=== PATIENT | female | born 1995 | race Caucasian/White ===

== ENCOUNTER 2020-05-10 16:10 | Emergency (ER) | payer OTHER, SELFPAY ==
[2020-05-10 19:10] VITALS: BP 116/78; PULSE 95; RESP 16; TEMP 37.1; O2SAT 99; BMI 20.3
--- NOTE | 2020-05-10 19:40 | ED_ITS ---
HPI - Abdominal Pain General Chief Complaint: Abdominal Pain <ANCELMO Johnson Last Filed: 05/10/20 22:45> Stated Complaint: ABD PAIN/NAUSEA/DIZZINESS/VOMITING <ANCELMO Johnson Last Filed: 05/10/20 22:45> Time Seen by Provider: 05/10/20 19:30 <ANCELMO Johnson Last Filed: 05/10/20 22:45> Source: patient <ANCELMO Johnson Last Filed: 05/10/20 22:45> Mode of arrival: ambulatory <ANCELMO Johnson Last Filed: 05/10/20 22:45> History of Present Illness HPI narrative: 24-year-old female with no significant past medical history presenting to ED complaining of lower abdominal cramping x1 week, and positive at home preg ankit test. Admits to associated nausea and vomiting. Denies fever, chills, vaginal bleeding, vaginal discharge, flank pain, concern for STI. Patient is sexually active with 1 partner <ANCELMO Johnson Last Filed: 05/10/20 22:45> MD elicited complaint: abdominal pain <ANCELMO Johnson Last Filed: 05/10/20 22:45> Related Data Home Medications: Home Medications Medication Instructions Recorded Confirmed No Known Home Meds 05/10/20 05/10/20 <ANCELMO Johnson Last Filed: 05/10/20 22:45> Allergies/Adverse Reactions: Allergies Allergy/AdvReac Type Severity Reaction Status Date / Time No Known Allergies Allergy Unverified 04/11/20 19:44 [No Known Allergies*] <ANCELMO Johnson Last Filed: 05/10/20 22:45> Review of Systems Review of Systems Constitutional: No Weight loss, No Fever, No Chills Cardiovascular: No Chest Pain, No SOB Gastrointestinal: + Nausea, + Vomiting, No Diarrhea, No Constipation, + abdominal pain Genitourinary: No irregular bleeding, No Dysuria, No Urinary Frequency, No Hematuria, No Urgency, No Flank Pain, No Urinary Flow Changes Skin: No Skin Lesions, No rash <ANCELMO Johnson Last Filed: 05/10/20 22:45> Yes all other systems are reviewed and are negative <ANCELMO Johnson Last Filed: 05/10/20 22:45> Physical Exam Vital Signs: Vital Signs: Vital Signs Temp Pulse Resp BP Pulse Ox 05/10/20 19:10 98.7 F 95 16 116/78 99 Body Mass Index 20.3 <Amy Wesley PA - Last Filed: 05/10/20 22:45> Vital Signs: Vital Signs Temp Pulse Resp BP Pulse Ox 05/10/20 19:10 98.7 F 95 16 116/78 99 Body Mass Index 20.3 <Jc Dubon MD - Last Filed: 05/14/20 14:59> Const: General: cooperative and healthy appearing <ANCELMO Johnson - Last Filed: 05/10/20 22:45> Orientation/consciousness: patient oriented x3 <ANCELMO Johnson - Last Filed: 05/10/20 22:45> Limitations: no limitations <ANCELMO Johnson - Last Filed: 05/10/20 22:45> HENMT: Head: Yes normal to inspection <Amy Wesley [place] - Last Filed: 05/10/20 22:45> Ears: hearing grossly normal bilaterally <Amy Wesley [place] - Last Filed: 05/10/20 22:45> General nose exam: Normal external nose present <ANCELMO Johnson - Last Filed: 05/10/20 22:45> Face and sinus: Yes normal facial exam <ANCELMO Johnson - Last Filed: 05/10/20 22:45> Eyes: General: appearance normal, both eyes and all related structures <ANCELMO Johnson - Last Filed: 05/10/20 22:45> EOM: EOMs intact bilaterally <Amy Wesley [place] - Last Filed: 05/10/20 22:45> Neck: Neck: Yes normal visual inspection <ANCELMO Johnson - Last Filed: 05/10/20 22:45> Chest: Chest palpation & inspection: normal inspection of the chest <ANCELMO Johnson - Last Filed: 05/10/20 22:45> GI: Inspection: Yes normal to inspection <ANCELMO Johnson - Last Filed: 05/10/20 22:45> Palpation (GI): Soft to palpation, nontender, no guarding and not rigid <Amy Wesley PA - Last Filed: 05/10/20 22:45> : General: Yes no CVA tenderness <Amy Wesley PA - Last Filed: 05/10/20 22:45> Back/Spine/Pelvis: Back: no CVA tenderness <Amy Wesley PA - Last Filed: 05/10/20 22:45> Skin: Rashes: no rashes <Amy Wesley PA - Last Filed: 05/10/20 22:45> Wounds: no wounds <Amy Wesley PA - Last Filed: 05/10/20 22:45> Neuro: General: patient oriented x3 <ANCELMO Johnson - Last Filed: 05/10/20 22:45> Gait exam (Neuro): Normal gait present <ANCELMO Johnson - Last Filed: 05/10/20 22:45> Extrem: General: Yes normal to inspection <ANCELMO Johnson - Last Filed: 05/10/20 22:45> Course Course Course Narrative: -4-- labs unremarkable, UA negative, urine positive >> Ob transvaginal ultrasound ordered <ANCELMO Johnson - Last Filed: 05/10/20 22:45> I have reviewed the chart <Jc Dubon MD - Last Filed: 05/14/20 14:59> MDM - Abdominal Pain MDM Narrative Medical decision making narrative: 24-year-old female with no significant past medical history presenting to ED complaining of lower abdominal cramping x1 week, and positive at home test. On exam VS as, NAD/ well-appearing, abdomen soft /nontender, no CVAT. concern for vs ectopic vs ovarian cyst/torsion. Low concern for appendicitis / diverticulitis or other infectious etiology Plan: Labs, UA, ultrasound, reassess <ANCELMO Johnson - Last Filed: 05/10/20 22:45> Lab Data Result diagrams: : 05/10/20 21:33 05/10/20 21:33 <ANCELMO Johnson - Last Filed: 05/10/20 22:45> Labs: Lab Results 05/10/20 05/10/20 05/10/20 Range/Units 21:32 21:33 21:33 WBC 6.1 (4.8-10.8) X10*3/uL RBC 4.27 (4.20-5.50) X10*6/uL Hgb 12.7 (12.0-16.0) g/dl Hct 36.9 L (37-47) % MCV 86.4 (80-98) fL MCH 29.7 (27.0-33.0) pg MCHC 34.4 (31.0-35.0) g/dl RDW 12.1 (11.0-16.0) % Plt Count 170 (160-400) X10*3/uL MPV 12.2 (9.4-12.3) fL Immature Gran % (Auto) 0.3 (0.0-0.4) % Neut % (Auto) 54.7 (45-73) % Lymph % (Auto) 31.8 (20-40) % [place] % (Auto) 11.2 H (2-11) % Eos % (Auto) 1.5 (0-4) % Baso % (Auto) 0.5 (0-2) % Lymph # (Auto) 2.0 (1.2-4.9) X10*3/uL [place] # (Auto) 0.7 (0.1-1.2) X10*3/uL Eos # (Auto) 0.1 (0.0-0.4) X10*3/uL Baso # (Auto) 0.0 (0.0-0.2) X10*3/uL Abs Immat Gran (auto) 0.02 (0.00-0.03) X10*3/uL Absolute Neuts (auto) 3.4 (2.0-8.3) X10*3/uL Absolute Nucleated RBC 0.000 (0.0-0.012) X10*3/uL Nucleated RBC % (auto) 0.0 (0.0-0.2) /100WBC Sodium (135-145) mmol/L Potassium (3.3-5.1) mmol/l Chloride (96-108) mmol/L Carbon Dioxide (22-29) mmol/L Anion Gap (12-20) BUN (9-16) mg/dL Creatinine (0.5-1.4) mg/dL Estim Creat Clear Calc Estimated GFR Random Glucose (60-115) mg/dL Calcium (8.4-10.2) mg/dL Magnesium (1.6-2.6) mg/dL Total Bilirubin (0.0-1.0) mg/dL Direct Bilirubin (0.0-0.5) mg/dL AST (5-31) U/L ALT (0-31) U/L Alkaline Phosphatase (39-117) U/L Total Protein (6.5-8.0) g/dL Albumin (3.5-5.0) g/dL Lipase (8-78) U/L Beta HCG, Quant 7194 mIU/mL Urine Color YELLOW Urine Appearance CLEAR Urine pH 7.0 (5.0-8.0) Ur Specific [place] 1.020 (1.005-1.025) Urine Protein NEG (NEG-TRACE) MG/DL Urine Glucose (UA) NEG (NEG) MG/DL Urine Ketones 15 (NEG) MG/DL Urine Blood NEG (NEG) Urine Nitrite NEG (NEG) Ur Leukocyte Esterase NEG (NEG) Urine Test POSITIVE H (NEGATIVE) 05/10/20 Range/Units 21:33 WBC (4.8-10.8) X10*3/uL RBC (4.20-5.50) X10*6/uL Hgb (12.0-16.0) g/dl Hct (37-47) % MCV (80-98) fL MCH (27.0-33.0) pg MCHC (31.0-35.0) g/dl RDW (11.0-16.0) % Plt Count (160-400) X10*3/uL MPV (9.4-12.3) fL Immature Gran % (Auto) (0.0-0.4) % Neut % (Auto) (45-73) % Lymph % (Auto) (20-40) % [place] % (Auto) (2-11) % Eos % (Auto) (0-4) % Baso % (Auto) (0-2) % Lymph # (Auto) (1.2-4.9) X10*3/uL [place] # (Auto) (0.1-1.2) X10*3/uL Eos # (Auto) (0.0-0.4) X10*3/uL Baso # (Auto) (0.0-0.2) X10*3/uL Abs Immat Gran (auto) (0.00-0.03) X10*3/uL Absolute Neuts (auto) (2.0-8.3) X10*3/uL Absolute Nucleated RBC (0.0-0.012) X10*3/uL Nucleated RBC % (auto) (0.0-0.2) /100WBC Sodium 134 L (135-145) mmol/L Potassium 3.7 (3.3-5.1) mmol/l Chloride 105 (96-108) mmol/L Carbon Dioxide 24 (22-29) mmol/L Anion Gap 9 L (12-20) BUN 9 (9-16) mg/dL Creatinine 0.63 (0.5-1.4) mg/dL Estim Creat Clear Calc 112.4 Estimated GFR > 60 Random Glucose 80 (60-115) mg/dL Calcium 9.0 (8.4-10.2) mg/dL Magnesium 2.0 (1.6-2.6) mg/dL Total Bilirubin 0.5 (0.0-1.0) mg/dL Direct Bilirubin 0.3 (0.0-0.5) mg/dL AST 16 (5-31) U/L ALT 13 (0-31) U/L Alkaline Phosphatase 34 L (39-117) U/L Total Protein 7.1 (6.5-8.0) g/dL Albumin 4.3 (3.5-5.0) g/dL Lipase 37 (8-78) U/L Beta HCG, Quant mIU/mL Urine Color Urine Appearance Urine pH (5.0-8.0) Ur Specific [place] (1.005-1.025) Urine Protein (NEG-TRACE) MG/DL Urine Glucose (UA) (NEG) MG/DL Urine Ketones (NEG) MG/DL Urine Blood (NEG) Urine Nitrite (NEG) Ur Leukocyte Esterase (NEG) Urine Test (NEGATIVE) <ANCELMO Johnson - Last Filed: 05/10/20 22:45> Lab Results 05/10/20 05/10/20 05/10/20 Range/Units 21:32 21:33 21:33 WBC 6.1 (4.8-10.8) X10*3/uL RBC 4.27 (4.20-5.50) X10*6/uL Hgb 12.7 (12.0-16.0) g/dl Hct 36.9 L (37-47) % MCV 86.4 (80-98) fL MCH 29.7 (27.0-33.0) pg MCHC 34.4 (31.0-35.0) g/dl RDW 12.1 (11.0-16.0) % Plt Count 170 (160-400) X10*3/uL MPV 12.2 (9.4-12.3) fL Immature Gran % (Auto) 0.3 (0.0-0.4) % Neut % (Auto) 54.7 (45-73) % Lymph % (Auto) 31.8 (20-40) % [place] % (Auto) 11.2 H (2-11) % Eos % (Auto) 1.5 (0-4) % Baso % (Auto) 0.5 (0-2) % Lymph # (Auto) 2.0 (1.2-4.9) X10*3/uL [place] # (Auto) 0.7 (0.1-1.2) X10*3/uL Eos # (Auto) 0.1 (0.0-0.4) X10*3/uL Baso # (Auto) 0.0 (0.0-0.2) X10*3/uL Abs Immat Gran (auto) 0.02 (0.00-0.03) X10*3/uL Absolute Neuts (auto) 3.4 (2.0-8.3) X10*3/uL Absolute Nucleated RBC 0.000 (0.0-0.012) X10*3/uL Nucleated RBC % (auto) 0.0 (0.0-0.2) /100WBC Sodium (135-145) mmol/L Potassium (3.3-5.1) mmol/l Chloride (96-108) mmol/L Carbon Dioxide (22-29) mmol/L Anion Gap (12-20) BUN (9-16) mg/dL Creatinine (0.5-1.4) mg/dL Estim Creat Clear Calc Estimated GFR Random Glucose (60-115) mg/dL Calcium (8.4-10.2) mg/dL Magnesium (1.6-2.6) mg/dL Total Bilirubin (0.0-1.0) mg/dL Direct Bilirubin (0.0-0.5) mg/dL AST (5-31) U/L ALT (0-31) U/L Alkaline Phosphatase (39-117) U/L Total Protein (6.5-8.0) g/dL Albumin (3.5-5.0) g/dL Lipase (8-78) U/L Beta HCG, Quant 7194 mIU/mL Urine Color YELLOW Urine Appearance CLEAR Urine pH 7.0 (5.0-8.0) Ur Specific [place] 1.020 (1.005-1.025) Urine Protein NEG (NEG-TRACE) MG/DL Urine Glucose (UA) NEG (NEG) MG/DL Urine Ketones 15 (NEG) MG/DL Urine Blood NEG (NEG) Urine Nitrite NEG (NEG) Ur Leukocyte Esterase NEG (NEG) Urine Test POSITIVE H (NEGATIVE) 05/10/20 Range/Units 21:33 WBC (4.8-10.8) X10*3/uL RBC (4.20-5.50) X10*6/uL Hgb (12.0-16.0) g/dl Hct (37-47) % MCV (80-98) fL MCH (27.0-33.0) pg MCHC (31.0-35.0) g/dl RDW (11.0-16.0) % Plt Count (160-400) X10*3/uL MPV (9.4-12.3) fL Immature Gran % (Auto) (0.0-0.4) % Neut % (Auto) (45-73) % Lymph % (Auto) (20-40) % [place] % (Auto) (2-11) % Eos % (Auto) (0-4) % Baso % (Auto) (0-2) % Lymph # (Auto) (1.2-4.9) X10*3/uL [place] # (Auto) (0.1-1.2) X10*3/uL Eos # (Auto) (0.0-0.4) X10*3/uL Baso # (Auto) (0.0-0.2) X10*3/uL Abs Immat Gran (auto) (0.00-0.03) X10*3/uL Absolute Neuts (auto) (2.0-8.3) X10*3/uL Absolute Nucleated RBC (0.0-0.012) X10*3/uL Nucleated RBC % (auto) (0.0-0.2) /100WBC Sodium 134 L (135-145) mmol/L Potassium 3.7 (3.3-5.1) mmol/l Chloride 105 (96-108) mmol/L Carbon Dioxide 24 (22-29) mmol/L Anion Gap 9 L (12-20) BUN 9 (9-16) mg/dL Creatinine 0.63 (0.5-1.4) mg/dL Estim Creat Clear Calc 112.4 Estimated GFR > 60 Random Glucose 80 (60-115) mg/dL Calcium 9.0 (8.4-10.2) mg/dL Magnesium 2.0 (1.6-2.6) mg/dL Total Bilirubin 0.5 (0.0-1.0) mg/dL Direct Bilirubin 0.3 (0.0-0.5) mg/dL AST 16 (5-31) U/L ALT 13 (0-31) U/L Alkaline Phosphatase 34 L (39-117) U/L Total Protein 7.1 (6.5-8.0) g/dL Albumin 4.3 (3.5-5.0) g/dL Lipase 37 (8-78) U/L Beta HCG, Quant mIU/mL Urine Color Urine Appearance Urine pH (5.0-8.0) Ur Specific [place] (1.005-1.025) Urine Protein (NEG-TRACE) MG/DL Urine Glucose (UA) (NEG) MG/DL Urine Ketones (NEG) MG/DL Urine Blood (NEG) Urine Nitrite (NEG) Ur Leukocyte Esterase (NEG) Urine Test (NEGATIVE) <Jc Dubon MD - Last Filed: 05/14/20 14:59> Discharge Plan Discharge Clinical Impression: , Abdominal pain in <ANCELMO Johnson - Last Filed: 05/10/20 22:45> Patient Disposition: Home, Self-Care <ANCELMO Johnson - Last Filed: 05/10/20 22:45> Instructions: Abdominal Pain in (ED), First Trimester (ED) <ANCELMO Johnson - Last Filed: 05/10/20 22:45> Additional Instructions: your blood work showed a beta quant of greater than 7194 your ultrasound showed a intrauterine gestational sac without a pole, which can be normal in early . Ultrasound also showed trace amount of fluid in your pelvis and endometrium, recommending a repeat ultrasound in 7-10 days You should have your blood work redrawn in 48 hours if your abdominal cramping persists or worsens, you develop vaginal bleeding or discharge, or pain becomes unbearable return to the ED immediately CALL YOUR OBGYN TOMORROW TO MAKE AN APPOINTMENT START TAKING VITAMINS MAKE SHE STAY HYDRATED AT HOME <ANCELMO Johnson - Last Filed: 05/10/20 22:45> Prescriptions: No Action No Known Home Meds RF: 0 <ANCELMO Johnson - Last Filed: 05/10/20 22:45> Referrals: Fady Delacruz MD [Physician] - 2 days <ANCELMO Johnson - Last Filed: 05/10/20 22:45> Interventions: ED Discharge Assessment Last Done: 05/11/20 02:08 <ANCELMO Johnson - Last Filed: 05/10/20 22:45> Discharge Date/Time: 05/11/20 02:10 <ANCELMO Johnson - Last Filed: 05/10/20 22:45> PMFSH Past Medical History Attestation statement: The following information was validated with the patient. <ANCELMO Johnson - Last Filed: 05/10/20 22:45> Surgical History: Surgical History (Updated 05/10/20 @ 19:23 by Amie Bhatia) History of adenoidectomy Hx of appendectomy <ANCELMO Johnson - Last Filed: 05/10/20 22:45> Social History Social History: Social History Alcohol intake: never Smoking Status: Never smoker Smoked in Last 30 Days: No Use of substances other than those prescribed or required for medical reasons: No Advance Directives: No Advance Directives Information Provided: Yes <ANCELMO Johnson - Last Filed: 05/10/20 22:45>
[2020-05-10] MEDS: 0.9 % Sodium Chloride 1,000 ML 999 ML IVCONT (21:37)
[2020-05-10 22:00] VITALS: BP 97/66; PULSE 83; RESP 16; TEMP 36.8; O2SAT 99
[2020-05-10 22:00] LABS: MANUAL DIFF FLAG NO
[2020-05-10 22:05] LABS: Basophils Percent Auto 0.5 % (0-2); Eosinophils Absolute Auto 0.1 X10*3/uL (0.0-0.4); Eosinophils Percent Auto 1.5 % (0-4); Hematocrit 36.9 % (37-47); Hemoglobin 12.7 g/dl (12.0-16.0); Imm Gran Abs Auto 0.02 X10*3/uL (0.00-0.03); Imm Gran Pct Auto 0.3 % (0.0-0.4); Lymphocytes Percent Auto 31.8 % (20-40); Mean Corpuscular HGB Conc 34.4 g/dl (31.0-35.0); Mean Corpuscular Hemoglobin 29.7 pg (27.0-33.0); Mean Corpuscular Volume 86.4 fL (80-98); Mean Platelet Volume 12.2 fL (9.4-12.3); Monocytes Absolute Auto 0.7 X10*3/uL (0.1-1.2); Monocytes Percent Auto 11.2 % (2-11); Neutrophils Absolute Auto 3.4 X10*3/uL (2.0-8.3); Neutrophils Percent Auto 54.7 % (45-73); Platelet Count 170 X10*3/uL (160-400); Red Blood Count 4.27 X10*6/uL (4.20-5.50); Red Cell Distribution Width 12.1 % (11.0-16.0); White Blood Count 6.1 X10*3/uL (4.8-10.8)
[2020-05-10 22:25] LABS: Glucose Urine UA NEG (NEG); Leukocyte Esterase Urine NEG (NEG); Nitrite Urine NEG (NEG); Urine Blood NEG (NEG); Urine Ketones 15 MG/DL (NEG); Urine Protein NEG (NEG-TRACE)
[2020-05-10 22:31] LABS: Appearance Urine CLEAR; Color Urine YELLOW
[2020-05-10 22:34] LABS: UPreg QC Valid YES; Urine Pregnancy POSITIVE (NEGATIVE)
[2020-05-10 22:40] LABS: Alanine Aminotransferase 13 U/L (0-31); Albumin Level 4.3 g/dL (3.5-5.0); Alkaline Phosphatase 34 U/L (39-117); Anion Gap 9 (12-20); Aspartate Amino Transferase 16 U/L (5-31); Bilirubin Direct 0.3 mg/dL (0.0-0.5); Bilirubin Total 0.5 mg/dL (0.0-1.0); Blood Urea Nitrogen 9 mg/dL (9-16); Carbon Dioxide 24 mmol/L (22-29); Chloride 105 mmol/L (96-108); Creatinine Clr Calc Pharmacy 112.4; Estimated Glomerular Filt Rate > 60; Glucose Random 80 mg/dL (60-115); Lipase 37 U/L (8-78); Potassium 3.7 mmol/l (3.3-5.1); Sodium 134 mmol/L (135-145); Total Protein 7.1 g/dL (6.5-8.0)
[2020-05-10 23:49] LABS: HCG Quantitative 7194 mIU/mL
--- NOTE | 2020-05-11 00:03 | US_ITS ---
EXAMINATION: ULTRASOUND OB TRANSVAGINAL CLINICAL INFORMATION: Lower abdominal cramping, COMPARISON: None TECHNIQUE: Sonographic evaluation of the pelvis was performed transabdominally and transvaginally. FINDINGS: The uterus measures 7.7 x 4.0 x 6.0 cm. Within the uterus there is a gestational sac measuring 1.0 x 0.6 x 0.9 cm; this corresponds to a mean sac diameter of 0.8 cm and a gestational age of 5 weeks 3 days. Yolk sac is visible. No pole is seen at this time. Trace fluid is noted within the endometrial canal. The right ovary measures 3.6 x 3.0 x 2.3 cm. There is a complex right ovarian cyst measuring 2.3 x 2.1 x 1.9 cm, likely a corpus luteal cyst. The left ovary measures 2.5 x 1.2 x 1.4 cm and appears unremarkable. Small amount of free fluid is noted in the cul-de-sac. IMPRESSION: 1. Intrauterine gestational sac, with mean sac diameter corresponding to a gestational age of 5 weeks 3 days. No pole is visible at this time, which could be due to the early stage of . Sonographic follow-up in 7-10 days is recommended to assess for development of a pole. 2. Trace fluid in the endometrium, which could reflect a small amount of blood products. 3. Small amount of pelvic free fluid.
== END 2020-05-11 02:10 | disposition home or self-care (01) ==
PROVIDERS: Physician Assistant; Emergency Provider Emergency Medicine
DX: O26.91 Pregnancy related conditions, unspecified, first trimester (principal); R10.9 Unspecified abdominal pain
CPT/HCPCS: 36415; 76801; 76817; 80048; 80076; 81003; 81025; 83690; 83735; 84702; 85025; 96360; 99284

== ENCOUNTER 2025-07-16 13:38 | Emergency (ER) | payer MEDICAID, SELFPAY ==
--- NOTE | ~2025-07-16 | XR_ITS ---
EXAMINATION: XR CHEST 2 VIEWS HISTORY: coughing COMPARISON: There are no prior studies available for comparison. FINDINGS: PA and lateral views of the chest are submitted. The lungs are expanded and clear. There is no pleural effusion, pneumothorax, or pulmonary vascular congestion. The heart is normal in size. The bones are intact. XR/XR chest 2V IMPRESSION: Normal examination of the chest. Electronically signed by: Barrett Uribe MD 07/16/2025 01:59 PM [facility]
[2025-07-16 13:44] VITALS: BP 123/63; PULSE 110; RESP 18; TEMP 37.2; O2SAT 99; BMI 21.4
--- NOTE | 2025-07-16 13:48 | ED.GENADULT ---
HPI - General Adult General Chief complaint: Upper Respiratory Symptoms Stated complaint: Congested, Chills, Headaches, Body Aches Time Seen by Provider: 07/16/25 14:27 Source: patient and old records reviewed Mode of arrival: ambulatory Limitations: no limitations History of Present Illness ED Provider: GRAHAM DREW narrative: Healthy 30-year-old female who was exposed to her who tested positive for flu a. She notes she started with headaches, body aches, chills, nasal congestion for 1 day. She has no chest pain or trouble breathing. She has not been taking any [id number] medications for it. She is able to eat and drink. She thinks she also has the flu. MD complaint: Flu exposure with symptoms Onset (ago): day(s) (1) Location: head and face Radiation: non-radiation Severity: moderate Quality: aching Pain Consistency: constant Relieving factors: none Exacerbating factors: none Associated symptoms: cough, fever/chills, headaches, loss of appetite, malaise and other Treatments prior to arrival: none Related Data Previous Rx's ?Medication ?Instructions ?Recorded ibuprofen 600 mg tablet 600 mg PO Q6H PRN pain #30 tabs 07/16/25 ondansetron 4 mg disintegrating 4 mg PO Q8H PRN nausea and 07/16/25 tablet vomiting #20 tabs Allergies Allergy/AdvReac Type Severity Reaction Status Date / Time No Known Allergies Allergy Verified 07/16/25 13:46 Review of Systems Review of Systems: Yes all other systems are reviewed and are negative PMFSH Past Medical History Attestation statement: The following information was validated with the patient. Source: old records reviewed Medical History (Updated 07/16/25 @ 14:39 by Rody Aguirre DO) No pertinent past medical history Social History Social History (Updated 07/16/25 @ 14:31 by Rody Aguirre DO) Patient Tobacco Use Status: Never used Tobacco Advance Directives: No Advance Directives Information Provided: Yes Physical Exam ED Vital Signs: Vital Signs - 24 hr 07/16/25 13:44 07/16/25 14:58 Temperature 99 F 99 F Pulse Rate 110 H 110 H Respiratory Rate 18 18 Blood Pressure 123/63 123/63 Pulse Oximetry 99 99 BMI result Body Mass Index 21.4 Appearance: Alert. Oriented X3. No acute distress. Eyes: Pupils equal, round and reactive to light. ENT: Pharynx normal. Neck: Normal inspection. Neck supple. CVS: Normal heart rate and rhythm. Pulses normal. Respiratory: No respiratory distress. Breath sounds normal. Abdomen: Soft and nontender. Skin: Skin warm and dry. Normal skin color. Extremities: No lower extremity edema. Neuro: Oriented X 3. No motor deficit. No sensory deficit. Course Course Course Narrative: RmE: 30 yold female presents to the ED for URI symptoms. Patient states bodycahes, congestion, chills, and headaches, swabs and chest xray ordre.d Medical Decision Making Medical Decision Making MDM Narrative: 30-year-old female with no significant past medical history she denies any chance of she was exposed to her who has flu a. She comes in with URI symptoms she is not toxic appearing she has no chest pain or trouble breathing. She has stable vital signs she can be discharged home with supportive meds and return precautions Differential Diagnosis Differential Diagnoses: The differential diagnosis associated with the presentation includes viral syndrome, pneumonia Admission/Observation Consideration of admission/observation: Escalation of care including admission/observation considered Patient is nontoxic, well hydrated, tolerating p.o. she can be managed as an outpatient she has no significant risk factors I am holding Tamiflu at this time Lab Data [facility] Lab Attestation statement: I reviewed the patient's lab results. Labs: Lab Results 07/16/25 Range/Units 13:51 Influenza Type A (PCR) POSITIVE A (Negative) Influenza Type B (PCR) NEGATIVE (Negative) RSV RNA Qual (PCR) NEGATIVE (Negative) SARS-CoV-2 RNA (RT-PCR) NEGATIVE (Negative) S. pyogenes GrpA ARYAN Negative (Negative) Independent Interpretation I performed an independent interpretation of an: Plain X-Ray (normal ) Radiology Impression Discussion of test interpretation with radiology: I have reviewed the radiologist's reading. External Record Review External record reviewed: Outpatient record Prescription Management I considered prescription management with: Antiviral and Antibiotic Discharge Plan Discharge Clinical Impression: Influenza Patient Disposition: Home, Self-Care Instructions: Influenza (ED) Additional Instructions: your xray was normal your viral panel shows influenza A rest and stay hydrated alternate tylenol and motrin for fevers and pain return for worsening symptoms such as increased trouble breathing, chest pains, or any other concerns wear a mask you can infect others up to 7 days from the start of symptoms Prescriptions: New ibuprofen 600 mg tablet 600 mg PO Q6H PRN (Reason: pain) Qty: 30 0RF ondansetron 4 mg tablet,disintegrating 4 mg PO Q8H PRN (Reason: nausea and vomiting) Qty: 20 0RF Stand Alone Forms: Work/School Release Interventions: ED Discharge Assessment Last Done: 07/16/25 14:58 Discharge Date/Time: 07/16/25 15:01 Print Language: Argentine
[2025-07-16 14:06] LABS: IDNOW Serial# 58CA691E; Strep A Nucleic Acid Negative (Negative)
[2025-07-16 14:36] LABS: Resp Syncy Virus RNA Qual PCR NEGATIVE (Negative); SARS COV2 PCR INHOUSE NEGATIVE (Negative)
[2025-07-16 14:58] VITALS: BP 123/63; PULSE 110; RESP 18; TEMP 37.2; O2SAT 99
--- OUTSIDE RECORDS SUMMARY | 2025-07-16 17:59 | XMS_ITS | Clinical Summary ---
Author Organization [employer] Address [address] [place] [address] [address] [place] [address] Care Team Providers Care Educational Interpreter Name Role Phone Unavailable Primary Care Provider Unavailabl e Social History Tobacco Use Types Packs/Day Years Used Date Smoking Tobacco: Never Assessed Comments Unknown Sex and Gender Information Value Date Recorded Sex Assigned at Not on file Legal Sex Female 9:23 PM EDT Gender Identity Not on file Sexual Orientation Not on file Plan of Treatment Health Maintenance Due Date Last Done Comments Depression Screening 1994 SDOH Screening 1994 Disability Screening 1994 Alcohol/Substance Use Screening 2006 Tobacco Screening 2006 Family Planning (PISQ) 2009 Hepatitis C Screening 2012 Pap Smear 2015 HPV Vaccines (2 - 3-dose series) 11/30/2018 11/02/2018 Hepatitis B Vaccines (2 of 2 - CpG 2-dose series) 10/15/2023 09/17/2023 Cervical Cancer Screening 2024 HPV/Cotest 2024 COVID-19 Vaccine ( season) 2025 09/17/2023, 02/03/2021, 01/06/2021 Influenza Vaccine (#1) 2025 , 04/09/2022, 05/14/2021, Additional history exists DTaP/Tdap/Td Vaccines (3 - Td or Tdap) 10/25/2030 10/25/2020, 11/10/2017 Zoster Vaccines (1 of 2) 2044 RSV Patients and Patients Aged 60 years or older (1 - 1-dose 75+ series) 2069 HIV Screening Completed 11/02/2018 HIB Vaccines Aged Out No longer eligi ble based on patient's age to complete this topic Hepatitis A Vaccines Aged Out No long er eligible based on patient's age to complete this topic IPV Vaccines Aged Out No longer eligi ble based on patient's age to complete this topic Meningococcal B Vaccine Aged Out No l onger eligible based on patient's age to complete this topic Meningococcal Vaccine Aged Out No tyra griselda eligible based on patient's age to complete this topic Pneumococcal Vaccine: Pediatrics (0 to 5 Years) and At-Risk Patients (6 to 49) Years Aged Out No longer eligible based on patient's age to complete this topic RSV under 20 months Aged Out No longe r eligible based on patient's age to complete this topic Rotavirus Vaccines Aged Out No longer eligible based on patient's age to complete this topic
== END 2025-07-16 15:01 | disposition home or self-care (01) ==
PROVIDERS: Physician Assistant; Emergency Provider Emergency Medicine; PCP Dentist General Practice
DX: J10.1 Influenza due to other identified influenza virus with other respiratory manifestations (principal); R51.9 Headache, unspecified; M79.10 Myalgia, unspecified site; R50.9 Fever, unspecified; R05.9 Cough, unspecified; Z03.818 Encounter for observation for suspected exposure to other biological agents ruled out
CPT/HCPCS: 71046; 87637; 87651; 99282; 99283

== ENCOUNTER → 2025-07-16 13:47 | Outpatient (BNV) | payer MEDICAID, SELFPAY | PROVIDERS: Emergency Provider Emergency Medicine; PCP Dentist General Practice; Visit Provider Radiology Diagnostic Radiology | DX: R05.9 Cough, unspecified (principal) | CPT/HCPCS: 71046 ==